=== PATIENT | female | born 1955 | race African-American/Black ===

== ENCOUNTER 2017-12-16 00:22 | Emergency (ER) | payer MEDICARE ==
[2017-12-16] MEDS ORDERED: Ketorolac Tromethamine 30 MG/ML VIAL ONE (02:30)
--- NOTE | 2017-12-16 07:32 | CT ---
PRELIMINARY REPORT/[facility]/EMERGENTY AFTER-HOURS PROCEDURE CT Head Without Intravenous Contrast EXAM DATE/TIME: Exam ordered 12/16/2017 1:35 AM CLINICAL HISTORY: 62 years old, female; Pain; Headache; Patient HX: Stress headache that started last week. Pain is int ermittent. Patient reports not being bale to get any relief. TECHNIQUE: Axial computed tomography images of the head/brain without intravenous contrast. COMPARISON: No relevant prior studies available. FINDINGS: Brain: Unremarkable. No hemorrhage. No significant white matter disease. No edema. Ventricles: Unremarkable. No ventriculomegaly. Bones/joints: Unremarkable. No acute fracture. Soft tissues: Unremarkable. Sinuses: Unremarkable as visualized. No acute sinusitis. Mastoid air cells: Unremarkable as visualized. No mastoid effusion. IMPRESSION: Normal head/brain CT. Thank you for allowing us to participate in the care of your patient. Dictated and Authenticated by: Darin Lee MD 12/16/2017 2:13 AM Central Time ([place] & [place]) FINAL REPORT CT BRAIN WITHOUT CONTRAST: FINDINGS/IMPRESSION: I agree with the findings and impression given in the preliminary report per [facility] physician. No zelalem dence of acute intracranial abnormality. POS: [facility]
== END 2017-12-16 02:40 | disposition home or self-care (01) ==
LOC: ERS 00:22
DX: F43.9 Reaction to severe stress, unspecified (principal); E11.9 Type 2 diabetes mellitus without complications; F32.9 Major depressive disorder, single episode, unspecified; F41.0 Panic disorder [episodic paroxysmal anxiety]; Z79.899 Other long term (current) drug therapy
CPT/HCPCS: 70450; 96372; J1885

== ENCOUNTER 2019-02-26 11:30 | Emergency (ER) | payer MEDICARE ==
[2019-02-26] MEDS ORDERED: Meclizine HCl 25 MG TAB ONE (12:35)
== END 2019-02-26 13:43 | disposition home or self-care (01) ==
LOC: ERS 11:30
DX: H81.13 Benign paroxysmal vertigo, bilateral (principal); E11.9 Type 2 diabetes mellitus without complications; F32.9 Major depressive disorder, single episode, unspecified; F41.0 Panic disorder [episodic paroxysmal anxiety]; Z79.899 Other long term (current) drug therapy
CPT/HCPCS: 36416; 99284; J8597

== ENCOUNTER 2020-02-09 11:13 | Outpatient (CLI) | payer MEDICARE ==
--- NOTE | 2020-02-09 11:37 | CT ---
CT BRAIN WITHOUT CONTRAST: HISTORY: Headache COMPARISON: 12/16/2017 FINDINGS: No evidence of acute infarct, hemorrhage, midline shift or abnormal extra-axial fluid collections is seen. The ventricular size is appropriate and the basilar cisterns are patent. The bony calvarium is intact. The visualized paranasal sinuses and mastoid air cells are well aerated. IMPRESSION: No CT evidence of acute intracranial process.
== END 2020-02-09 11:14 | disposition home or self-care (01) ==
LOC: BICCT 11:13
PROVIDERS: ATTEND Family Medicine
DX: R51 Headache (principal)
CPT/HCPCS: 70450

== ENCOUNTER 2020-06-27 09:02 | Outpatient (CLI) | payer MEDICARE ==
--- NOTE | 2020-06-27 09:55 | MMO ---
Bilateral MAMMO Bilat Screen [facility]. CLINICAL HISTORY: Patient is 65 years old and is seen for screening. The patient has no family history of breast cancer. The patient has no personal history of cancer. VIEWS: The views performed were: bilateral craniocaudal with tomosynthesis and bilateral mediolateral oblique with tomosynthesis. FILMS COMPARED: The present examination has been compared to prior imaging studies performed at [facility] on 08/07/2015 and 08/07/2016, and at [facility] on 03/27/2006 and 10/20/2008. This study has been interpreted with the assistance of computer-aided detection. MAMMOGRAM FINDINGS: The breasts are heterogeneously dense, which could obscure a lesion on mammography. There are no suspicious masses, suspicious calcifications, or new areas of architectural distortion. IMPRESSION: THERE IS NO MAMMOGRAPHIC EVIDENCE OF MALIGNANCY. A ROUTINE FOLLOW-UP MAMMOGRAM IN 1 YEAR IS RECOMMENDED. THE RESULTS OF THIS EXAM WERE SENT TO THE PATIENT. ACR BI-RADS Category 1 - Negative MAMMOGRAPHY NOTE: 1. A negative mammogram report should not delay a biopsy if a dominant of clinically suspicious mass is present. 2. Approximately 10% to 15% of breast cancers are not detected by mammography. 3. Adenosis and dense breasts may obscure an underlying neoplasm. Reported by: SHAMAR GREEN MD Electonically Signed: [id number]
== END 2020-06-27 09:03 | disposition home or self-care (01) ==
LOC: BICMAMMO 09:02
PROVIDERS: ATTEND Family Medicine
DX: Z12.31 Encounter for screening mammogram for malignant neoplasm of breast (principal)
CPT/HCPCS: 77063; 77067

== ENCOUNTER → 2021-01-05 | Outpatient (CLI) | payer MEDICARE | LOC: BICULT 09:00 | PROVIDERS: ATTEND Family Medicine | DX: R59.0 Localized enlarged lymph nodes (principal) | CPT/HCPCS: 76536 ==

== ENCOUNTER 2021-08-01 09:47 | Outpatient (CLI) | payer MEDICARE | END 2021-08-01 09:48 | disposition home or self-care (01) | LOC: BICRAD 09:47 | PROVIDERS: ATTEND Internal Medicine Rheumatology | DX: M47.22 Other spondylosis with radiculopathy, cervical region (principal); M50.123 Cervical disc disorder at C6-C7 level with radiculopathy; M48.02 Spinal stenosis, cervical region | CPT/HCPCS: 72052 ==

== ENCOUNTER 2021-12-24 23:08 | Emergency (ER) | payer MEDICARE | END 2021-12-24 23:43 | disposition home or self-care (01) | LOC: ERS 23:08 | DX: R42 Dizziness and giddiness (principal); R51.9 Headache, unspecified | CPT/HCPCS: 99283 ==